=== PATIENT | male | born 1940 | race Caucasian/White ===

== ENCOUNTER 2016-11-05 02:50 | Observation (INO) ==
--- NOTE | 2016-11-05 03:13 | Emergency Department Note ---
Disposition Clinical Impression: Respiratory failure Qualifiers: Chronicity: acute Respiratory failure complication: unspecified whether with hypoxia or hypercapnia Qualified Code(s): J96.00 - Acute respiratory failure, unspecified whether with hypoxia or hypercapnia CHF (congestive heart failure) Qualifiers: Congestive heart failure type: unspecified congestive heart failure type Congestive heart failure chronicity: unspecified congestive heart failure chronicity Qualified Code(s): I50.9 - Heart failure, unspecified Pneumonia Qualifiers: Aspiration pneumonia type: unspecified Laterality: unspecified laterality Disposition: Admitted As Inpatient Referrals: Renita Dawkins MD [Primary Care Provider] - Time of Disposition: 06:03 Altered Mental Status HPI - General Stated Complaint: illness Source: other Mode of arrival: EMS Nursing Notes Reviewed: Yes Vital Signs Reviewed: Yes - History of Present Illness HPI Narrative: [place] [facility] HAS hx of freq falls and has a subacute cervical fx from one of htem.according to [facility] staff, he is usually awake and does puzzles at nite. he apparently called out to them and they found him "slumped over his walker" they attempted to arouse him and he would briefly open his eyes, but they felt as tho he is usually more repssonsive and called PMD who requested ED eval . vitls and glu nl. no recnet illnesses or changes of medication complaint: decreased responsiveness Onset (ago): Just MEDICAL TECHNOLOGIST GENERALIST Timing confirmed by: caregiver - Related Data Home Medications Medication Instructions Recorded Confirmed Levothyroxine [Synthroid] 75 mcg PO DAILY 05/12/15 09/18/16 Metoprolol [Lopressor] 12.5 mg PO BID 05/12/15 09/18/16 Omeprazole [PriLOSEC] 40 mg PO DAILY 05/12/15 09/18/16 Polyethylene Glycol 3350 [MiraLAX] 17 gm PO BID 05/12/15 09/18/16 Potassium Chloride 20 meq PO DAILY 05/12/15 09/18/16 Sennosides [Senna] 3 tab PO DAILY 05/12/15 09/18/16 Sertraline [Zoloft] 100 mg PO DAILY 05/12/15 09/18/16 Spironolactone [Aldactone] 50 mg PO DAILY 05/12/15 09/18/16 Tamsulosin [Flomax] 0.4 mg PO DAILY 05/12/15 09/18/16 Nitroglycerin [Nitrostat] 0.4 mg SL Q5-6MIN PRN 10/31/15 09/18/16 Torsemide [Demadex] 40 mg PO BID 10/31/15 09/18/16 BuPROPion [Wellbutrin] 100 mg PO DAILY 06/30/16 09/18/16 Acetaminophen [Tylenol] 650 mg PO Q4HR PRN 08/22/16 09/18/16 Docusate [Colace] 100 mg PO DAILY 11/05/16 11/05/16 Iron Polysaccharide Complex 150 mg PO DAILY 11/05/16 11/05/16 [Ferrex 150] Mirabegron [Myrbetriq] 25 mg PO DAILY 11/05/16 11/05/16 Tramadol HCl [Ultram] 50 mg PO QID PRN 11/05/16 11/05/16 Allergies Allergy/AdvReac Type Severity Reaction Status Date / Time acetaminophen [From Percocet] Allergy Hives Verified 10/31/15 05:36 diazepam [From Valium] Allergy Hives Verified 10/31/15 05:36 hydrocodone [From Vicodin] Allergy See Verified 11/05/16 03:56 Comments Iodinated Contrast Media - Allergy Hives Verified 10/31/15 05:36 Oral and [Iodinated Contrast Media - IV Dye] iodine Allergy See Verified 11/05/16 03:56 Comments Metolazone [From Zaroxolyn] Allergy See Verified 11/05/16 03:56 Comments Oxycodone [From Percocet] Allergy Hives Verified 10/31/15 05:36 rofecoxib [From Vioxx] Allergy See Verified 11/05/16 03:56 Comments adhesive tape AdvReac Redness of Verified 07/30/16 21:54 Skin Limitations: ROS unobtainable due to patients medical condition (pt is not providing any verbal hx) Past Medical History - Past Medical History Medical history: Reports: cardiomyopathy, CHF, COPD, coronary artery disease, diabetes, hyperlipidemia, kidney stones, myocardial infarction, renal disease, thyroid disease, other Surgical history: Reports: angioplasty/stent, coronary bypass (CABG) Psychiatric history: Reports: depression - Social History Smoking Status: Never smoker Smokeless Tobacco Status: No Alcohol use: Reports: none Drug use: Reports: none Physical Exam Constitutional: Patient elderly adn frail. restful and somnolent. he will open eyes to command but no verbal [id number]. he has some cough and opens mouth to suction catheter. Head: Normocephalic and atraumatic. Nose: Nose normal. Mouth/Throat: Mucous membranes are moist. no trauma, Eyes: Conjunctivae, extraocular motions and lids are normal. Neck: Normal range of motion. Neck supple. Pulmonary/Chest: Effort normal without distress , equal chest rise. some upper airway congestion. no sputum production. pacer noted on each ant chest. heart w/ loud systolic murmur, regular Musculoskeletal: Patient ambulates to ED. No sign of extremity deformity 1+ distal edema Neurological: Patient is somnolent. will open eyes to command . GCS 8 Skin: Skin is warm, dry and intact. Psychiatric:pt sleeping, resp even Course - Reevaluation(s) Reevaluation #1: Narcan .5 given w/ no change in pt status. he seems somnolent but it is 0321. he willopen eyes to command and has nl vitals. glu 156. he does not seem in pain or is resp distress. Time: 03:20 Vital Signs Temperature 96.7 F L 11/05/16 03:19 Pulse Rate 68 11/05/16 03:19 Respiratory Rate 12 11/05/16 03:19 Blood Pressure 167/85 11/05/16 03:19 O2 Sat by Pulse Oximetry 95 11/05/16 03:19 Temperature 96.7 F L 11/05/16 03:19 Pulse Rate 69 11/05/16 05:46 Respiratory Rate 14 11/05/16 05:46 Blood Pressure 168/86 11/05/16 05:46 O2 Sat by Pulse Oximetry 94 L 11/05/16 05:46 Oxygen Delivery Oxygen Delivery Room Air Altered Mental Status - MDM Narrative Medical decision making narrative: cxr shows infiltrate v fluid base right lung and bilat increased conslidation v previous cxr in 2014. pt has course wet sounding cough and likely has resp illness. diff dx CHF pneumonia other - Medical Records Medical records reviewed: Yes I reviewed the patient's medical records. - Lab Data Lab results reviewed: Yes I reviewed the patient's lab results. Result diagrams: 11/05/16 03:30 11/05/16 03:30 Lab Results 11/05/16 11/05/16 11/05/16 Range/Units 03:30 03:30 03:30 WBC 7.9 (4.3-11.1) K/mcL RBC 4.57 (4.19-5.50) M/mcL Hgb 12.3 L (12.9-16.9) g/dL Hct 38.6 (37.5-50.1) % MCV 84.5 (83.0-100.0) fL MCH 26.9 L (28.0-33.3) pg MCHC 31.9 (31.6-35.5) g/dL RDW 14.0 (11.5-14.5) % Plt Count 201 (140-400) K/mcL MPV 11.6 (9.4-12.4) fL Immature Gran % 0.3 (0-4) % Seg Neutrophils % 55.8 % Lymphocytes % 31.9 % Monocytes % 8.3 % Eosinophils % 3.3 % Basophils % 0.4 % Neutrophils # 4.4 (1.6-8.9) K/mcL Lymphocytes # 2.5 (0.6-4.6) K/mcL Monocytes # 0.7 (0.0-1.3) K/mcL Eosinophils # 0.3 (0.0-0.6) K/mcL Basophils # 0.0 (0.0-0.2) K/mcL PT 12.7 H (9.4-12.1) Seconds INR 1.2 VBG pH (7.32-7.42) pH Units VBG pCO2 (41-51) mmHg VBG pO2 (25-40) mmHg VBG HCO3 (21-27) mEq/L VBG Lactic Acid (0.5-2.2) mmol/L Sodium 140 (136-145) mEq/L Potassium 3.6 (3.5-4.5) mEq/L Chloride 101 (98-109) mEq/L Carbon Dioxide 26 (19-29) mEq/L BUN 17 (8-26) mg/dL Creatinine 1.02 (0.72-1.25) mg/dL Est GFR ( Amer) > 60 (> 60) Est GFR (Non-Af Amer) > 60 (> 60) BUN/Creatinine Ratio 17 (6-26) Glucose 185 H (70-99) mg/dL Calculated Osmolality 296 (280-300) Calcium 10.4 (8.6-10.8) mg/dL Total Bilirubin 0.5 (0.2-1.2) mg/dL Direct Bilirubin 0.1 (0.0-0.5) mg/dL Indirect Bilirubin 0.4 (0.0-1.2) mg/dL AST 21 (5-34) Units/L ALT 12 (0-55) Units/L Alkaline Phosphatase 85 (38-126) Units/L Troponin I (0-0.03) ng/mL B-Natriuretic Peptide (0-100) pg/mL Serum Total Protein 7.3 (6.0-8.3) g/dL Albumin 3.6 (3.5-5.0) g/dL Globulin 3.7 H (2.4-3.5) g/dL Albumin/Globulin Ratio 1.0 L (1.1-2.2) 11/05/16 11/05/16 11/05/16 Range/Units 03:30 03:30 03:30 WBC (4.3-11.1) K/mcL RBC (4.19-5.50) M/mcL Hgb (12.9-16.9) g/dL Hct (37.5-50.1) % MCV (83.0-100.0) fL MCH (28.0-33.3) pg MCHC (31.6-35.5) g/dL RDW (11.5-14.5) % Plt Count (140-400) K/mcL MPV (9.4-12.4) fL Immature Gran % (0-4) % Seg Neutrophils % % Lymphocytes % % Monocytes % % Eosinophils % % Basophils % % Neutrophils # (1.6-8.9) K/mcL Lymphocytes # (0.6-4.6) K/mcL Monocytes # (0.0-1.3) K/mcL Eosinophils # (0.0-0.6) K/mcL Basophils # (0.0-0.2) K/mcL PT (9.4-12.1) Seconds INR VBG pH 7.46 H (7.32-7.42) pH Units VBG pCO2 42.5 (41-51) mmHg VBG pO2 77.1 H (25-40) mmHg VBG HCO3 30.2 H (21-27) mEq/L VBG Lactic Acid 2.3 H (0.5-2.2) mmol/L Sodium (136-145) mEq/L Potassium (3.5-4.5) mEq/L Chloride (98-109) mEq/L Carbon Dioxide (19-29) mEq/L BUN (8-26) mg/dL Creatinine (0.72-1.25) mg/dL Est GFR ( Amer) (> 60) Est GFR (Non-Af Amer) (> 60) BUN/Creatinine Ratio (6-26) Glucose (70-99) mg/dL Calculated Osmolality (280-300) Calcium (8.6-10.8) mg/dL Total Bilirubin (0.2-1.2) mg/dL Direct Bilirubin (0.0-0.5) mg/dL Indirect Bilirubin (0.0-1.2) mg/dL AST (5-34) Units/L ALT (0-55) Units/L Alkaline Phosphatase (38-126) Units/L Troponin I 0.04 H* (0-0.03) ng/mL B-Natriuretic Peptide 162 H (0-100) pg/mL Serum Total Protein (6.0-8.3) g/dL Albumin (3.5-5.0) g/dL Globulin (2.4-3.5) g/dL Albumin/Globulin Ratio (1.1-2.2) - Radiology Data Radiology results reviewed: Yes I reviewed the patient's radiology results. - EKG Data EKG attestation: Yes I reviewed and interpreted this EKG. TPA Checklist - LKW: 3-4.5 hrs Add. Contraindications Patient/family understanding: The patient/family members have been counseled and understood the risk, benefit , and alternatives of treatment.
[2016-11-05] MEDS ORDERED: Ipratropium/Albuterol Neb 3 ML IH ONE (03:26)
[2016-11-05] MEDS ORDERED: Levofloxacin 500 MG/100 ML 500 MG/100 ML BAG IVPB ONE (03:26)
[2016-11-05] MEDS ORDERED: Vancomycin 1,000 MG VIAL IVPB ONE (03:26)
[2016-11-05 03:41] LABS: Basophils % 0.4 %; Eosinophils # 0.3 K/mcL (0.0-0.6); Eosinophils % 3.3 %; Hematocrit 38.6 % (37.5-50.1); Hemoglobin 12.3 g/dL (12.9-16.9); Immature Granulocytes % 0.3 % (0-4); Lymphocytes # 2.5 K/mcL (0.6-4.6); Lymphocytes % 31.9 %; Mean Corpuscular HGB Conc 31.9 g/dL (31.6-35.5); Mean Corpuscular Hemoglobin 26.9 pg (28.0-33.3); Mean Corpuscular Volume 84.5 fL (83.0-100.0); Mean Platelet Volume 11.6 fL (9.4-12.4); Monocytes # 0.7 K/mcL (0.0-1.3); Monocytes % 8.3 %; Neutrophils # 4.4 K/mcL (1.6-8.9); Platelet Count 201 K/mcL (140-400); Red Blood Count 4.57 M/mcL (4.19-5.50); Segmented Neutrophils % 55.8 %
[2016-11-05 03:43] LABS: INR 1.2; Prothrombin Time 12.7 Seconds (9.4-12.1)
[2016-11-05 03:48] LABS: VBG HCO3 30.2 mEq/L (21-27); VBG PCO2 42.5 mmHg (41-51); VBG PH 7.46 pH Units (7.32-7.42); VBG PO2 77.1 mmHg (25-40)
[2016-11-05 03:53] LABS: Alanine Aminotransferase 12 Units/L (0-55); Albumin 3.6 g/dL (3.5-5.0); Alkaline Phosphatase 85 Units/L (38-126); Aspartate Amino Transferase 21 Units/L (5-34); BUN/Creatinine Ratio 17 (6-26); Bilirubin,Direct 0.1 mg/dL (0.0-0.5); Bilirubin,Indirect 0.4 mg/dL (0.0-1.2); Bilirubin,Total 0.5 mg/dL (0.2-1.2); Blood Urea Nitrogen 17 mg/dL (8-26); Calcium 10.4 mg/dL (8.6-10.8); Carbon Dioxide 26 mEq/L (19-29); Chloride 101 mEq/L (98-109); Globulin 3.7 g/dL (2.4-3.5); Glucose 185 mg/dL (70-99); Osmolality,Calculated 296 (280-300); Potassium 3.6 mEq/L (3.5-4.5); Sodium 140 mEq/L (136-145); Total Protein 7.3 g/dL (6.0-8.3); eGFR For African Americans > 60 (> 60); eGFR For Non-African Americans > 60 (> 60)
[2016-11-05] MEDS ORDERED: Furosemide 40 MG/4 ML VIAL IVP ONE (05:28)
[2016-11-05] MEDS ORDERED: Vancomycin 750 MG in D5% in Water 250 ML IVPB ONE (05:31)
[2016-11-05] MEDS ORDERED: Naloxone 0.4 MG/ML INJ IVP PRN (07:58)
[2016-11-05] MEDS ORDERED: Acetaminophen 325 MG TABLET PO PRN (07:58)
[2016-11-05] MEDS ORDERED: *HR* Enoxaparin 40 MG/0.4 ML SYRINGE SQ SCH (07:58)
[2016-11-05] MEDS ORDERED: Nitroglycerin 0.4 MG TAB.SUBL SL PRN (07:58)
[2016-11-05] MEDS ORDERED: Spironolactone 25 MG TABLET PO SCH (09:00)
[2016-11-05] MEDS ORDERED: Iron Polysaccharide Complex 150 MG CAPSULE PO SCH (09:00)
[2016-11-05] MEDS ORDERED: (Mirabegron [Myrbetriq] 25 MG) PO SCH (09:00)
[2016-11-05] MEDS ORDERED: Sennosides 8.6 MG TABLET PO SCH (09:00)
--- NOTE | 2016-11-05 09:56 | Electrocardiograph Report ---
[address] [address] Test Date: 2016-11-05 Pat Name: Michael Lucio Department: 2000 Room: 116 Gender: M Sub Acute Care Nurse: JOHNNA : 1940 Requested By: Annamaria Patterson Order Number: [id number] Reading MD: Xavi Green MD Measurements Intervals [place] Rate: 69 P: [place]: 0 QRS: 214 QRSD: 181 T: 46 QT: 486 QTc: 506 Interpretive Statements ELECTRONIC VENTRICULAR PACEMAKER Electronically Signed On 11-05-2016 9:54:32 EDT by Xavi Green MD
[2016-11-05] MEDS: Torsemide 20 MG TABLET PO SCH ×2 (10:39→17:05)
--- NOTE | 2016-11-05 11:38 | Internal Med History&Physical ---
Date of Encounter: 11/08/16 Time of Encounter: 11:30 Assessment and Plan (1) Decreased level of consciousness Status: Acute I am not sure if this patient has had a CVA. He will open his eyes. He will not look at me and will not follow commands. Unable to assess whether there is any weakness to one side but the nurse suspected that the right side appeared weak. I did not see anything in his history about a CVA. (2) Cervical transverse process fracture Status: Acute By history I guess is not unstable he is being seen by neurosurgical physicians at [facility]. Wearing a cervical collar Qualifiers: Encounter type: subsequent encounter Qualified Code(s): S12.9XXD - Fracture of neck, unspecified, subsequent encounter (3) Ventral hernia Status: Acute By history but soft it appears reducible Qualifiers: Obstruction and gangrene presence: without obstruction or gangrene Qualified Code(s): K43.9 - Ventral hernia without obstruction or gangrene (4) CHF (congestive heart failure) Status: Acute Sandra Guevara has a low ejection fraction this is chronic Qualifiers: Congestive heart failure type: unspecified congestive heart failure type Congestive heart failure chronicity: unspecified congestive heart failure chronicity Qualified Code(s): I50.9 - Heart failure, unspecified Internal Medicine - H&P: HPI Chief complaint: Patient was showing a decreased level of responsiveness at the [facility]. Appare Admitted From: Emergency Dept Plans for Post Hospital Care: Transfer Assisted Facility History of present illness: Mr. Lucio is a 76 year old male With multiple chronic problems who was seen in emergency room and transfer to regular floor care. He is a DNR CC by request H and has a slightly elevated troponin. The lab is reasonably stable except for that. His ABGs were good his chest x-ray shows low CHF but is understanding of this chronic. It says acute renal failure but his renal function is good also. Past Med Surg Social Fam HX - Past Medical History Medical history: cardiomyopathy, CHF, COPD, coronary artery disease, diabetes, hyperlipidemia, kidney stones, myocardial infarction, renal disease, thyroid disease, other Psychiatric history: depression - Past Surgical History Surgical History: angioplasty/stent, coronary bypass (CABG) - Social History Smoking Status: Never smoker Smokeless Tobacco Status: No Alcohol use: none Drug use: none Internal Medicine - H&P: Meds Levothyroxine [Synthroid] 75 mcg PO DAILY 05/12/15 [History] Metoprolol [Lopressor] 12.5 mg PO BID 05/12/15 [History] Omeprazole [PriLOSEC] 40 mg PO DAILY 05/12/15 [History] Polyethylene Glycol 3350 [MiraLAX] 17 gm PO BID 05/12/15 [History] Potassium Chloride 20 meq PO DAILY 05/12/15 [History] Sennosides [Senna] 3 tab PO DAILY 05/12/15 [History] Sertraline [Zoloft] 100 mg PO DAILY 05/12/15 [History] Spironolactone [Aldactone] 50 mg PO DAILY 05/12/15 [History] Tamsulosin [Flomax] 0.4 mg PO DAILY 05/12/15 [History] Nitroglycerin [Nitrostat] 0.4 mg SL Q5-6MIN PRN 10/31/15 [History] Torsemide [Demadex] 40 mg PO BID 10/31/15 [History] BuPROPion [Wellbutrin] 100 mg PO DAILY 06/30/16 [History] Acetaminophen [Tylenol] 650 mg PO Q4HR PRN 08/22/16 [History] Docusate [Colace] 100 mg PO DAILY 11/05/16 [History] Iron Polysaccharide Complex [Ferrex 150] 150 mg PO DAILY 11/05/16 [History] Mirabegron [Myrbetriq] 25 mg PO DAILY 11/05/16 [History] Tramadol HCl [Ultram] 50 mg PO QID PRN 11/05/16 [History] Allergies acetaminophen [From Percocet] Allergy (Verified 10/31/15 05:36) Hives diazepam [From Valium] Allergy (Verified 10/31/15 05:36) Hives hydrocodone [From Vicodin] Allergy (Verified 11/05/16 03:56) See Comments unknown Iodinated Contrast Media - Oral and [Iodinated Contrast Media - IV Dye] Allergy (Verified 10/31/15 05:36) Hives iodine Allergy (Verified 11/05/16 03:56) See Comments unknown Metolazone [From Zaroxolyn] Allergy (Verified 11/05/16 03:56) See Comments unknown Oxycodone [From Percocet] Allergy (Verified 10/31/15 05:36) Hives rofecoxib [From Vioxx] Allergy (Verified 11/05/16 03:56) See Comments adhesive tape Adverse Reaction (Verified 07/30/16 21:54) Redness of Skin All Systems PM: A 10-system review of systems was performed and is negative for pertinent findings except as documented above in the HPI. - Constitutional Vitals: Temp Pulse Resp BP Pulse Ox 98.3 F 74 16 153/75 95 11/05/16 11:24 11/05/16 11:24 11/05/16 11:24 11/05/16 11:24 11/05/16 11:24 - Head Head exam: Present: atraumatic, normal inspection, normocephalic - Neck Neck exam general surgery: Present: supple, trachea midline. Absent: lymphadenopathy Additional comments: Since wearing a cervical collar due to lateral body fracture secondary to a fall. No neurologic deficit is been documented in the past. Been seen by neurosurgery at [facility]. - Respiratory Respiratory exam: Present: CTAB. Absent: accessory muscle use, rales, rhonchi, wheezes - Cardiovascular Cardiovascular exam: Present: RRR, +S1, +S2. Absent: diastolic murmur, gallop, rubs, systolic murmur Additional comments: Patient has a holosystolic ejection murmur - GI/Abdominal GI/Abdominal exam: Present: hypoactive bowel sounds, normal bowel sounds, soft, no peritoneal signs. Absent: distended, tenderness Additional comments: A she has a history of multiple abdominal surgeries. In addition to that he has an abdominal ventral hernia. - Expanded Lower Extremities Exam Lower Leg exam: Present: abrasion (Vision is increased pigmentation in the anterior mid tibial area.) Internal Med - H&P Results - Labs CBC & Chem 7: 11/05/16 03:30 11/05/16 03:30 Labs: Lab actually is pretty good considering everything
[2016-11-05 16:24] VITALS: BP 120/64
[2016-11-05] MEDS ORDERED: Vancomycin 1,000 MG in D5% in Water 250 ML IVPB SCH (18:00)
[2016-11-05] MEDS ORDERED: Aminoglycoside Consult 1 EACH MC ONE (18:59)
[2016-11-06] MEDS ORDERED: Levofloxacin 500 MG/100 ML 500 MG/100 ML BAG IVPB SCH (09:00)
== END 2016-11-05 19:00 | disposition short-term general hospital (02) ==
LOC: EMEROOGRE 02:50 → INPGRE 02:50
PROVIDERS: ADMIT Internal Medicine; ATTEND Internal Medicine